=== PATIENT | female | born 1980 | race Caucasian/White ===

== ENCOUNTER 2016-08-13 16:33 | Emergency (ER) | payer MEDICAID ==
[~2016-08-13] VITALS: Ht 165.1 cm; Wt 181.0 kg
[2016-08-13] MEDS ORDERED: MORPHINE SULFATE 10 MG/ML CPJ IM ONE (19:15)
[2016-08-13 20:57] LABS: HCG SCREEN NEGATIVE
[2016-08-14 00:30] VITALS: BP 138/77
== END 2016-08-14 00:40 | disposition home or self-care (01) ==
LOC: ER 16:36
DX: S82.492A Other fracture of shaft of left fibula, initial encounter for closed fracture (principal); S00.03XA Contusion of scalp, initial encounter; S80.02XA Contusion of left knee, initial encounter; Z98.51 Tubal ligation status; Z98.890 Other specified postprocedural states; W01.0XXA Fall on same level from slipping, tripping and stumbling without subsequent striking against object, initial encounter; Y93.89 Activity, other specified; Y92.59 Other trade areas as the place of occurrence of the external cause
CPT/HCPCS: 29505; 36415; 70450; 73590; 73610; 84702; 84703; 96372; 99285; J2270